=== PATIENT | female | born 1950 | race Caucasian/White ===

== ENCOUNTER 2018-12-28 13:40 | Emergency (ER) | payer BC, OTHER ==
--- NOTE | 2018-12-28 14:13 | ED Physician Documentation ---
General Adult - HISTORIAN Historian: patient - HPI Stated Complaint: left ankle pain Chief Complaint: General Adult Onset: hours Timing: still present Severity: moderate Further Comments: yes (Pt is a 68 yo female with L ankle pain who fell on some steps and twisted her ankle. Pt did not strike her head or injure her neck.) - ROS CONST: no problems EYES/ENT: none CVS/RESP: none GI/: none MS/SKIN/LYMPH: other (L ankle pain) - PAST HX Past History: other (Anxiety/Depression, chronic pain, falls (walks with cane), COPD, CVA/TIA, DM, HTN, Thyroid d/o.) Surgeries/Procedures: none Allergies/Adverse Reactions: Allergies Allergy/AdvReac Type Severity Reaction Status Date / Time codeine Allergy Verified 12/28/18 14:04 Iodinated Contrast Media Allergy Verified 12/28/18 14:04 morphine Allergy Verified 12/28/18 14:04 Home Medications: Ambulatory Orders Medication Instructions Recorded Unobtainable 12/28/18 - SOCIAL HX Smoking History: quit greater than 1 year - FAMILY HX Family History: No - VITAL SIGNS Vital Signs: Vital Signs Temp Pulse Resp BP Pulse Ox 96.5 F L 83 20 115/65 93 12/28/18 13:45 12/28/18 13:45 12/28/18 13:45 12/28/18 13:45 12/28/18 13:45 - REVIEWED ASSESSMENTS Nursing Assessment Reviewed: Yes Vitals Reviewed: Yes Progress - Progress Progress: Percocet (5/325) 2 tabs po in ER X-ray Left ankle: History: Pain and swelling. AP, lateral and mortise view of the left ankle are submitted. No signs of acute fracture or dislocations are seen. Ankle mortise is adequately maintained. No other soft tissue abnormality is identified. Impression: No bony abnormality. Wear air splint Crutches Continue your pain medications as directed. Ibuprofen as directed. General Adult Physical Exam - PHYSICAL EXAM GENERAL APPEARANCE: moderate distress EENT: ENT inspection normal, pharynx normal NECK: normal inspection, supple RESPIRATORY: no resp distress, chest non-tender, breath sounds normal CVS: reg rate & rhythm, heart sounds normal ABDOMEN: soft, no organomegaly, normal bowel sounds BACK: normal inspection, no CVA tenderness SKIN: warm/dry, normal color EXTREMITIES: other (L ankle tenderness) NEURO: oriented X3, motor nml, sensation nml Discharge Clincal Impression: L ankle sprain Referrals: Primary Doctor,No [Primary Care Provider] - Condition: Good Disposition: 01 HOME, SELF-CARE Decision to Admit: NO Decision Time: 15:35
[2018-12-28] MEDS: oxyCODONE/ACETAMINOPHEN 5/325 TABLET PO ONE (14:35)
--- NOTE | 2018-12-28 15:12 | Diagnostic Imaging Report ---
ALLAN MORAN [facility] [address] [facility] [address] [address] Report Submission Date: Dec 28, 2018 2:42:43 PM CDT Patient Study Name: DERRICK CALLEJAS Date: Dec 28, 2018 2:05:54 PM CDT Modality Type: DX Gender: F Description: ANKLE 3 VIEWS OR MORE : 50 Institution: [facility] Physician: ALLAN MORAN Exam: Left ankle. History: Pain and swelling. AP, lateral and mortise view of the left ankle are submitted. No signs of acute fracture or dislocations are seen. Ankle mortise is adequately maintained. No other soft tissue abnormality is identified. Impression: No bony abnormality. Electronically signed on Dec 28, 2018 2:42:43 PM CDT by: Jimmy STAUFFER
[2018-12-28 15:38] VITALS: BP 137/70
== END 2018-12-28 15:31 | disposition home or self-care (01) ==
LOC: ED 13:40
DX: S93.402A Sprain of unspecified ligament of left ankle, initial encounter (principal); X50.1XXA Overexertion from prolonged static or awkward postures, initial encounter; W10.9XXA Fall (on) (from) unspecified stairs and steps, initial encounter; Y99.8 Other external cause status
CPT/HCPCS: 73610; 99281; 99282; A9270